=== PATIENT | male | born 1955 | race African-American/Black ===

== ENCOUNTER 2019-06-13 00:04 | Inpatient (IN) | payer OTHER ==
[~2019-06-13] VITALS: Ht 152.4 cm; Wt 73.9 kg
[2019-06-13 00:09] VITALS: BP 169/94
[2019-06-13] MEDS ORDERED: APAP650 PO (00:14)
[2019-06-13] MEDS ORDERED: CLARITIN10 M3 PO (00:14)
[2019-06-13 00:50] LABS: HEMATOCRIT 45.1 % (42.0-52.0); HEMOGLOBIN 15.3 gm/dL (14.0-18.0); MCH 34.7 pg (26.0-34.0); MCHC 33.9 g/dL (28.0-37.0); MCV 102.3 fL (80.0-100.0); PLATELET COUNT 221 thou/uL (150-400); RBC 4.41 mil/uL (4.50-6.00); RDW 16.4 % (10.5-14.5); WBC 5.4 thou/uL (4.0-11.0)
[2019-06-13 00:52] LABS: CALCIUM 9.5 mg/dL (8.5-10.1); CREATININE 0.9 mg/dL (0.7-1.3); POTASSIUM 3.1 mmol/L (3.5-5.1)
[2019-06-13 01:04] LABS: ALBUMIN 3.9 g/dL (3.4-5.0); MAGNESIUM 1.6 mg/dL (1.8-2.4); PHOSPHORUS 3.5 mg/dL (2.5-4.9); TOTAL BILIRUBIN 0.7 mg/dL (<0.1-1.0); TOTAL PROTEIN 8.8 g/dL (6.4-8.2); TROPONIN-I 0.13 ng/mL (<0.06)
[2019-06-13 02:00] LABS: ABSOLUTE NEUTROPHILS 3.2 thou/uL (1.4-8.2); PLATELET ESTIMATE NORMAL
[2019-06-13 03:23] VITALS: BP 140/78
[2019-06-13 03:50] VITALS: BP 140/78
[2019-06-13 04:24] VITALS: BP 146/85
[2019-06-13 08:00] VITALS: BP 146/81
[2019-06-13 09:51] LABS: CHOLESTEROL 131 mg/dL (<200); HDL CHOLESTEROL 58 mg/dL (>40); LDL CHOLESTEROL 66 mg/dL (<100); TC:HDL 2.3 Ratio (Not establshd); TRIGLYCERIDE 36 mg/dL (<150); VLDL 7 mg/dL (<40)
--- NOTE | 2019-06-13 10:54 | 2DMMODE ---
[facility] [place] [employer] [address] 2 D/M-MODE ECHOCARDIOGRAM Name: AZUCENAMARIALUISA OMID MEIER Room #: 216-P [facility] IN [facility]#: [id number] Admission: 06/13/19 Attend Phys: Mohit Vaca MD Discharge: Date of : 53 Report #: [id number] THIS REPORT FOR: //name// APPROVED REPORT Study performed: 06/13/2019 09:41:08 EXAM: Comprehensive 2D, Doppler, and color-flow Echocardiogram Patient Location: Echo lab Status: routine BSA: 1.81 HR: 105 bpm BP: 146/81 mmHg Rhythm: NSR/Tachy/PVCs. Other Information Study Quality: Good Indications Elevated troponin. 2D Dimensions RVDd: 35.92 mm IVSd: 10.17 (7-11mm) LVOT Diam: 21.40 (18-24mm) LVDd: 57.31 mm PWd: 8.95 (7-11mm) Ascending Ao: 32.38 (22-36mm) LVDs: 51.23 (25-40mm) Aortic Root: 36.35 mm Volumes Left Atrial Volume (Systole) Single Plane 4CH: 61.27 mL Single Plane 2CH: 77.67 mL LA ESV Index: 42.00 mL/m2 Aortic Valve AoV Peak Sohan.: 1.25 m/s AO Peak Gr.: 6.25 mmHg LVOT Max P.12 mmHg LVOT Max V: 0.88 m/s CECILLE Vmax: 2.54 cm2 Mitral Valve IVRT: 51.90 ms Pulmonary Valve [facility] [address] [address] 2 D/M-MODE ECHOCARDIOGRAM Name: MARIALUISA ZENG Room #: 216-P [facility] IN ..#: [id number] Admission: 06/13/19 Attend Phys: Mohit Vaca MD Discharge: Date of : 53 Report #: [id number] PV Peak Sohan.: 0.85 m/s PV Peak Gr.: 2.91 mmHg Pulmonary Vein P Vein S: 0.62 m/s P Vein D: 0.31 m/s P Vein S/D Ratio: 2.00 Tricuspid Valve RAP Estimate: 5.00 mmHg Left Ventricle Left ventricle is at the upper limits of normal. There is normal left ventricular wall thickness. Left ventricular systolic function is mod-severely decreased.globaaly LVEF is 30%. This study is not technically sufficient to allow evaluation of the LV diastolic function. Right Ventricle The right ventricle is normal size. The right ventricular systolic function is normal. Atria Left atrium is mildly dilated. The right atrium size is normal. Aortic Valve The aortic valve is normal in structure. No aortic regurgitation is present. There is no aortic valvular stenosis. Mitral Valve The mitral valve is normal in structure. Moderate mitral regurgitation. Tricuspid Valve The tricuspid valve is normal in structure. There is no tricuspid valve regurgitation noted. Unable to assess PA pressure. Pulmonic Valve The pulmonary valve is normal in structure. Trace pulmonic regurgitation. Great Vessels The aortic root is normal in size. The ascending aorta is normal in size. IVC is normal in size and collapses >50% with inspiration. [facility] [address] [address] 2 D/M-MODE ECHOCARDIOGRAM Name: MARIALUISA ZENG Room #: 216-P [facility] IN [facility].#: [id number] Admission: 06/13/19 Attend Phys: Mohit Vaca MD Discharge: Date of : 53 Report #: [id number] Pericardium There is no pericardial effusion. <Conclusion> Left ventricle is at the upper limits of normal. Left ventricular systolic function is mod-severely decreased.globaaly LVEF is 30%. This study is not technically sufficient to allow evaluation of the LV diastolic function. The right ventricle is normal size. Left atrium is mildly dilated. The aortic valve is normal in structure. Moderate mitral regurgitation. There is no tricuspid valve regurgitation noted. Unable to assess PA pressure. The aortic root is normal in size. There is no pericardial effusion. <ELECTRONICALLY SIGNED> By: Willy Matute MD, [facility] 06/13/19 1053 1053 1053 Willy Matute MD, FACC /INF
--- NOTE | 2019-06-13 13:26 | CATHLAB ---
[facility] [address] [place] [address] INVASIVE PROCEDURE REPORT Name: ZENGMARIALUISA OMID MEIER Room #: 216-P [facility] IN [facility]#: [id number] Admission: 06/13/19 Attend Phys: Mohit Vaca MD Discharge: Date of : 53 Report #: [id number] THIS REPORT FOR: //name// APPROVED REPORT Study performed: 06/13/2019 10:32:24 Patient Details Patient Status: In-Patient Room #: The patient is a 63 year-old male Event Personnel Willy Matute Level Vial Inspector And Tester, Ada De Jesus RTR, Lisa Kirk David Monitor, No Alcantar RN profiler operator Performed Right and Left Heart Cath w/or w/o Coronarie [id number] [facility] Aortogram Abdominal Peripheral Angio [id number] Indication Chest pain Procedure Narrative The Right Groin^ was infiltrated with 1% Lidocaine subcutaneous anesthesia. A PINNACLE 6FR Sheath #[id number] sheath was inserted into the RFA^. Coronary angiography was performed using coronary diagnostic catheters. The right coronary system was accessed and visualized with a 6FR 3DRC #[id number] catheter. The left coronary system was accessed and visualized with a JL4 catheter. The left ventricle was accessed and visualized with a PIGTAIL catheter. Left ventriculogram was performed in 30 degree projection. An aortogram of the abdominal aorta was performed. Closure device was deployed with a 6 Fr MYNXGRIP 6/7F #[id number]. The patient tolerated the procedure well and there were no complications associated with the procedure. Intraoperative Conscious Sedation Sedation start time: 11.14 Case end Time: 11.54 Fentanyl 100 mcg Versed 2 mg Fluoro Time: 3.12 minutes Dose: DAP 3.00 cGycm2 343 mGy Contrast Type and Amount: Omnipaque 125 ml [facility] [place] [address] INVASIVE PROCEDURE REPORT Name: MARIALUISA ZENG Room #: 216-P [facility] IN ..#: [id number] Admission: 06/13/19 Attend Phys: Mohit Vaca MD Discharge: Date of : 53 Report #: [id number] Hemodynamics The right atrial mean pressure is 3 mmHg. The right ventricular pressure is 34/3 mmHg. The pulmonary artery pressure is 30/8 mmHg with a mean of 18 mmHg. The mean pulmonary capillary wedge pressure is 11 mmHg. The aortic pressure is 137/75 mmHg with a mean of 100 mmHg. The left ventricular pressure is 125/6 mmHg with a mean of mmHg. The left ventricular end diastolic pressure is 19 mmHg. The cardiac output using thermo method is 5.20 L/min. Conclusion #1 mildly dilated left ventricle with moderate global hypokinesis EF 25-30% range. #2 abdominal aorta mildly ectatic there is moderate ostial iliac disease of 40% bilaterally no aneurysm #3 left main long with a distal eccentric concentric lesion 30-40% giving rise to LAD circumflex and ramus branch #4 LAD extends around the apex with mild irregularity proximal calcification 3040% ostial disease #5 a ramus intermedius also is a 3040% ostial disease moderate distribution #6 circumflex OM nondominant with an eccentric 30% lesion off the left main otherwise preserved vessel. #7 dominant right with a diffuse distal disease only small PDA system. No occlusive disease noted #8 successful right heart catheterization with hemodynamics and cardiac output by thermodilution as described above. Recommendations and plan: Continue aggressive risk factor modification. No coronary intervention. Pulmonary pressures are within normal range. 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 Transfer to CCU in stable condition. <ELECTRONICALLY SIGNED> By: Willy Matute MD, FACC 06/13/19 1325 1325 1325 Willy Matute MD, FACC /INF
--- NOTE | 2019-06-13 17:22 | EKG ---
[place] [address] [facility] [employer] [place] [address] ELECTROCARDIOGRAM REPORT Name: MARIALUISA ZEGN OMID Room #: 216-P ADM IN M.R.#: [id number] Admission: 06/13/19 Attend Phys: Mohit Vaca MD Discharge: Date of : 53 Report #: [id number] THIS REPORT FOR: //name// [facility] Test Date: 2019-06-13 Test Time: 00:30:03 Pat Name: MARIALUISA ZENG Department: Room: 216 Gender: M Lead Programmer: EMMA : 1955 Requested By: Scot Alcala Order Number: [id number] MD: Jani Roberts Measurements Intervals [place] Rate: 97 P: MS: QRS: 49 QRSD: 110 T: 91 QT: 419 QTc: 533 Interpretive Statements Normal sinus rhythm. Left ventricular hypertrophy Nonspecific T abnormalities, lateral leads Baseline wander in lead(s) V2 No previous ECG available for comparison Electronically Signed On 06-13-2019 17:21:55 SPEECH PATHOLOGY SUPERVISOR by Jani Roberts [email or web address] <ELECTRONICALLY SIGNED> By: Jani Roberts MD 06/13/19 1721 Jani Roberts MD /RONY
--- NOTE | 2019-06-13 17:26 | EKG ---
[place] [address] [facility] [email or web address] [address] ELECTROCARDIOGRAM REPORT Name: ZENGMARIALUISA OMID MEIER Room #: 216-P ADM IN M.R.#: [id number] Admission: 06/13/19 Attend Phys: Mohit Vaca MD Discharge: Date of : 53 Report #: [id number] THIS REPORT FOR: //name// [facility] Test Date: 2019-06-13 Test Time: 09:18:43 Pat Name: MARIALUISA ZENG Department: Room: 216 P Gender: M Air Conditioning Supervisor: Patricio PEÑA : 1955 Requested By: Coty Puga Order Number: [id number] MD: Jani Roberts Measurements Intervals [place] Rate: 110 P: 71 MN: 140 QRS: 17 QRSD: 100 T: 69 QT: 387 QTc: 524 Interpretive Statements Sinus tachycardia Ventricular premature complex Aberrant complex Probable left atrial enlargement Left ventricular hypertrophy No previous ECG available for comparison Electronically Signed On 06-13-2019 17:25:28 WAREHOUSE ASSOCIATE DRIVER by Jani Roberts [email or web address] <ELECTRONICALLY SIGNED> By: Jani Roberts MD 06/13/19 1725 7 7 MD ROCHELLE Montes
[2019-06-13 19:51] VITALS: BP 136/80
[2019-06-14 04:14] VITALS: BP 138/91
[2019-06-14 04:49] LABS: HEMATOCRIT 43.5 % (42.0-52.0); HEMOGLOBIN 14.7 gm/dL (14.0-18.0); MCH 34.5 pg (26.0-34.0); MCHC 33.7 g/dL (28.0-37.0); MCV 102.4 fL (80.0-100.0); RBC 4.25 mil/uL (4.50-6.00); RDW 16.6 % (10.5-14.5)
[2019-06-14 05:04] LABS: CALCIUM 8.8 mg/dL (8.5-10.1); MAGNESIUM 1.7 mg/dL (1.8-2.4); POTASSIUM 3.7 mmol/L (3.5-5.1)
[2019-06-14 12:00] VITALS: BP 123/60
[2019-06-14 20:34] VITALS: BP 138/73
[2019-06-15 04:20] VITALS: BP 145/89
[2019-06-15 04:49] LABS: HEMATOCRIT 38.9 % (42.0-52.0); HEMOGLOBIN 12.9 gm/dL (14.0-18.0); MCH 34.2 pg (26.0-34.0); MCHC 33.3 g/dL (28.0-37.0); MCV 102.7 fL (80.0-100.0); RBC 3.78 mil/uL (4.50-6.00); RDW 16.5 % (10.5-14.5); WBC 11.6 thou/uL (4.0-11.0)
[2019-06-15 04:58] LABS: ALBUMIN 2.4 g/dL (3.4-5.0); CALCIUM 8.2 mg/dL (8.5-10.1); CREATININE 0.9 mg/dL (0.7-1.3); PHOSPHORUS 2.6 mg/dL (2.5-4.9); POTASSIUM 3.5 mmol/L (3.5-5.1); TROPONIN-I 0.17 ng/mL (<0.06)
[2019-06-15 08:42] LABS: URINE BILIRUBIN 2+ (Negative); URINE BLOOD TRACE (Negative); URINE CLARITY CLEAR; URINE COLOR YELLOW; URINE GLUCOSE-RANDOM* NEGATIVE (Negative); URINE KETONES 2+ (Negative); URINE LEUKOCYTES-REFLEX NEGATIVE (Negative); URINE NITRITE-REFLEX NEGATIVE (Negative); URINE PROTEIN (DIPSTICK) TRACE (Negative); URINE SPECIFIC GRAVITY 1.025 (1.005-1.035)
[2019-06-15 08:44] LABS: ICTOTEST (BILI CONFIRMATORY) Positive (Negative)
[2019-06-15 08:50] LABS: AMP/METHAMP Negative (Negative); BARBITURATES Negative (Negative); BENZODIAZEPINES Negative (Negative); COCAINE Negative (Negative); METHADONE Negative (Negative); OPIATES POSITIVE (Negative); PCP Negative (Negative)
[2019-06-15 09:07] VITALS: BP 156/75
[2019-06-15 12:23] VITALS: BP 142/80
[2019-06-15 16:20] VITALS: BP 156/89
[2019-06-15 19:40] VITALS: BP 123/71
[2019-06-16 04:50] VITALS: BP 143/90
[2019-06-16 07:15] VITALS: BP 150/95
[2019-06-16 11:40] VITALS: BP 142/90
[2019-06-16 16:13] VITALS: BP 149/94
[2019-06-16 20:10] VITALS: BP 141/82
[2019-06-17 03:40] VITALS: BP 149/99
[2019-06-17 08:00] VITALS: BP 177/95
[2019-06-17 11:08] LABS: CALCIUM 8.6 mg/dL (8.5-10.1); CREATININE 0.9 mg/dL (0.7-1.3)
[2019-06-17] MEDS ORDERED: COREG6.25 MG PO (12:11)
[2019-06-17] MEDS ORDERED: CEFUROXIME500 MG PO (12:11)
[2019-06-17] MEDS ORDERED: BENICAR40 MG PO (12:11)
[2019-06-17] MEDS ORDERED: SPIRONOLACTONE25 M1 PO (12:11)
[2019-06-17] MEDS ORDERED: METRONIDAZOLE500 M4 PO (12:11)
[2019-06-17 12:32] VITALS: BP 177/95
== END 2019-06-17 14:26 | disposition home or self-care (01) | DRG 281 ==
LOC: ER 00:04 → 2N 02:56 → EROBS 02:56 → 2N 03:51
PROVIDERS: Emergency Medicine; Nurse Practitioner Adult Health; Nurse Practitioner Family; Surgery; ADMIT Hospitalist
PROC: B4101ZZ Fluoroscopy of Abdominal Aorta using Low Osmolar Contrast (ICD-10-PCS; principal; 2019-06-13)
PROC: 4A023N8 Measurement of Cardiac Sampling and Pressure, Bilateral, Percutaneous Approach (ICD-10-PCS; principal; 2019-06-13)
PROC: B2151ZZ Fluoroscopy of Left Heart using Low Osmolar Contrast (ICD-10-PCS; principal; 2019-06-13)
PROC: B2111ZZ Fluoroscopy of Multiple Coronary Arteries using Low Osmolar Contrast (ICD-10-PCS; principal; 2019-06-13)
DX: I21.4 Non-ST elevation (NSTEMI) myocardial infarction (principal); K80.12 Calculus of gallbladder with acute and chronic cholecystitis without obstruction; I42.8 Other cardiomyopathies; F17.210 Nicotine dependence, cigarettes, uncomplicated; E87.6 Hypokalemia; E83.42 Hypomagnesemia; F10.10 Alcohol abuse, uncomplicated; M19.90 Unspecified osteoarthritis, unspecified site; J32.9 Chronic sinusitis, unspecified; I50.9 Heart failure, unspecified; I11.0 Hypertensive heart disease with heart failure; I25.10 Atherosclerotic heart disease of native coronary artery without angina pectoris; Z90.89 Acquired absence of other organs; Z83.6 Family history of other diseases of the respiratory system; Z83.2 Family history of diseases of the blood and blood-forming organs and certain disorders involving the immune mechanism; Z79.899 Other long term (current) drug therapy
CPT/HCPCS: 10081